=== PATIENT | female | born 1995 | race African-American/Black ===

== ENCOUNTER 2025-03-03 13:19 | Emergency (ER) | payer OTHER ==
[~2025-03-03] VITALS: Ht 160 cm; Wt 55.0 kg
[2025-03-03 13:33] VITALS: BP 111/75; PULSE 104; RESP 18; TEMP 36.9; O2SAT 97; O2SAT 99
[2025-03-03 14:50] LABS: CLARITY URINE CLEAR (CLEAR); COLOR URINE DARK YELLOW (YELLOW); GLUCOSE URINE NEGATIVE (NEGATIVE); KETONES URINE TRACE (NEGATIVE); LEUKOCYTE ESTERASE URINE TRACE (NEGATIVE); NITRITE URINE NEGATIVE (NEGATIVE); OCCULT BLOOD URINE 2+ (NEGATIVE); PH URINE 6.0 (4.5-8.0); PROTEIN URINE 2+ (NEGATIVE); SPECIFIC GRAVITY URINE 1.016 (1.005-1.030); UROBILINOGEN URINE 1.0 E.U./dL (0.2-1.0)
[2025-03-03 15:01] LABS: BACTERIA URINE TRACE; SQUAMOUS EPITHELIAL CELL URINE 1+ /lpf (RARE/1+); YEAST URINE NONE SEEN
[2025-03-03 15:02] LABS: HYALINE CASTS URINE 0-5 /lpf
[2025-03-03 15:07] LABS: RBC URINE 15-25 /hpf (0-2)
[2025-03-03] MEDS ORDERED: CEPH500C2 MT (16:17)
[2025-03-06 04:07] LABS: CHLAMYDIA TRACHOMATIS NAA Positive (Negative); NEISSERIA GONORRHOEAE NAA Negative (Negative)
== END 2025-03-03 16:51 | disposition home or self-care (01) ==
LOC: ER 13:33
DX: N30.00 Acute cystitis without hematuria (principal); Z11.3 Encounter for screening for infections with a predominantly sexual mode of transmission
CPT/HCPCS: 87491; 87591; 81003; 81025; 99283; Z7610 ×3

== ENCOUNTER 2025-06-01 11:04 | Emergency (ER) | payer MEDICAID, OTHER ==
[~2025-06-01] VITALS: Ht 157.5 cm; Wt 55.0 kg
[~2025-06-01 11:04] MED LIST: CEPH500C2 MT
[2025-06-01 11:05] VITALS: O2SAT 98
[2025-06-01] MEDS: IBUPROFEN 600MG TABLET PO ONE (13:02)
[2025-06-01] MEDS ORDERED: PENI250T2 MT (14:24)
[2025-06-01] MEDS ORDERED: IBUP-1455 MT (14:24)
[2025-06-01] MEDS: PENICILLIN V POTASSIUM 250MG TABLET PO ONE (14:56)
[2025-06-01 14:59] VITALS: BP 103/62; PULSE 105; RESP 16; TEMP 36.7; O2SAT 99
== END 2025-06-01 15:01 | disposition home or self-care (01) ==
LOC: ER 11:04
DX: S02.5XXA Fracture of tooth (traumatic), initial encounter for closed fracture (principal); S00.83XA Contusion of other part of head, initial encounter; Y04.0XXA Assault by unarmed brawl or fight, initial encounter; Y93.89 Activity, other specified; Y92.89 Other specified places as the place of occurrence of the external cause; Y99.8 Other external cause status
CPT/HCPCS: 70110; 99283